=== PATIENT | female | born 1940 | race African-American/Black ===

== ENCOUNTER 2023-10-22 06:07 | Day surgery (SDC) | payer MEDICARE, BC, SELFPAY ==
[2023-10-22] VITALS (12 sets, daily range): BP systolic 81–167; BP diastolic 56–69; BMI 28.4
[2023-10-22] MEDS: NSS 211 ML IV (07:11)
[2023-10-22 07:13] LABS: Glucose - Point of Care 96 mg/dl (70-99)
[2023-10-22] MEDS: NSS 1000 IV (08:33)
--- NOTE | 2023-10-22 08:36 | ITS.CL.CATH ---
Rn Child - Catheterization
Cardiac Catheterization
Procedure Report:
CARDIAC CATHETERIZATION REPORT
Date of Procedure: 10/22/2023
Referring: Harmeet Ontiveros MD
Indication: Chest pain with moderate to severe aortic stenosis
HEMODYNAMIC DATA
AO: 127/60
LV: 145/18
PCWP: 22
PA: 53/26
RV: 53/15
RA: 14
Oximetry: Ao 91%, PA 65%, cardiac 4.0, cardiac index 2.4
There is moderate to severe aortic stenosis with mean gradient 24 mmHg and calculated DHRUV 0.9 cm�
LEFT VENTRICULOGRAPHY: Normal left ventricular wall motion with EF 64%
CORONARY ANGIOGRAPHY
Dominance: Right
Left Main: Normal
LAD: Calcified 30% mid LAD stenosis otherwise normal
Circumflex: Normal
RCA: Normal
Closure Device: None-the procedure was performed via the right radial artery and right femoral vein.
Radiation (mGy): 121
DAP (cm2.Gy): 8.7
Fluoroscopy time: 4.1 minutes
CONCLUSIONS
1: Elevated filling pressures with moderate pulmonary hypertension
2: Moderate to severe aortic stenosis with mean gradient 24 mmHg and calculated DHRUV 0.9 cm�
3. Normal left ventricular function with EF 64%
4. Mild single-vessel CAD as described
5. Given the elevated filling pressures will recommend trial of furosemide 20 mg/KCl 10 mEq on Mondays and Fridays
6. Would continue to monitor with serial clinical and echocardiogram follow-up for progression of AAS
7. Given age associated bleeding risk will transition to aspirin monotherapy as patient currently on DAPT
Copy to: Harmeet Ontiveros MD, Sweta Henderson,
Gilles Orosco MD, [facility], [facility]
[2023-10-22 08:38] LABS: Glucose - Point of Care 97 mg/dl (70-99)
== END 2023-10-22 11:45 | disposition home or self-care (01) ==
LOC: CATH 06:07
PROVIDERS: ATTENDING PHYSICIAN Internal Medicine Cardiovascular Disease; FAMILY PHYSICIAN Family Medicine; OTHER PHYSICIAN Internal Medicine
DX: I25.10 Atherosclerotic heart disease of native coronary artery without angina pectoris (principal); R07.9 Chest pain, unspecified; I35.0 Nonrheumatic aortic (valve) stenosis; I13.10 Hypertensive heart and chronic kidney disease without heart failure, with stage 1 through stage 4 chronic kidney disease, or unspecified chronic kidney disease; E11.22 Type 2 diabetes mellitus with diabetic chronic kidney disease; N18.30 Chronic kidney disease, stage 3 unspecified; I27.20 Pulmonary hypertension, unspecified; E78.00 Pure hypercholesterolemia, unspecified; Z79.02 Long term (current) use of antithrombotics/antiplatelets; Z79.84 Long term (current) use of oral hypoglycemic drugs; Z79.82 Long term (current) use of aspirin
CPT/HCPCS: C1894; 82962; 93005; 93460; Q9967

== ENCOUNTER 2024-02-20 05:51 | Inpatient (IN) | payer MEDICARE, BC, SELFPAY ==
[2024-02-17 10:40] VITALS: BMI 28.8
[2024-02-17 11:30] LABS: % Basophils 0.9 % (0-2); % Eosinophils 3.3 % (0-6); % Immature Granulocytes 0.1 % (0-0.5); % Lymphocytes 44.1 % (20.5-51.1); % Monocytes 5.6 % (1.7-9.3); Absolute Basophils 0.1 10^3/uL (0-0.2); Absolute Eosinophils 0.2 10^3/uL (0-0.7); Absolute Monocytes 0.4 10^3/uL (0.1-0.6); Absolute Neutrophils 3.1 10^3/uL (1.4-6.5); Hemoglobin 11.1 g/dL (12.0-16.0); Mean Corp Hgb Conc. 32.6 g/dL (33.0-37.0); Mean Corpuscular Volume 85.6 fL (81.0-99.0); Mean Platelet Volume 9.7 fL (7.4-10.4); Nucleated Red Blood Cells % 0 %; Platelet Count 249 10^3/uL (130-400); Red Blood Cell Count 3.97 10^6/uL (4.20-5.40); Red Cell Dist. Width 15.8 % (11.5-14.5); White Blood Cell Count 6.8 10^3/uL (4.8-10.8)
[2024-02-17 11:43] LABS: INR 0.95; PT 12.4 Sec (11.4-14.6)
[2024-02-17 11:44] LABS: APTT 29.3 Sec (23.4-35.0)
[2024-02-17 11:50] LABS: Blood Urea Nitrogen 20 mg/dl (7-17); Calcium 9.9 mg/dl (8.4-10.2); Carbon Dioxide 30 mmol/L (22-30); Chloride 105 mmol/L (98-107); Estimated Creatinine Clearance 32 ml/min; Glucose 91 mg/dl (70-99); Potassium 4.7 mmol/L (3.5-5.1); Sodium 146 mmol/L (135-145); eGFR 44.91
[2024-02-20] VITALS (21 sets, daily range): BP systolic 106–144; BP diastolic 53–86; BMI 29.2
[2024-02-20] MEDS: PERIDEX 0.12% ORAL RINSE 15 ML PO (06:44)
[2024-02-20] MEDS: BACTROBAN NASAL 1 GRAM NASAL (06:44)
[2024-02-20] MEDS: NSS 500 IV (06:45)
--- NOTE | 2024-02-20 07:09 | W.SUR.PREOP ---
Pre-Operative Surgical Note
-
I have examined this patient prior to the performance of the scheduled procedure.
The patient's condition is unchanged from the time of the current History and
Physical and the patient is able to undergo the scheduled procedure.
[2024-02-20 07:10] LABS: Glucose - Point of Care 93 mg/dl (70-99)
--- NOTE | 2024-02-20 09:22 | OR.RPT ---
Operative Report
Operative Report
PROCEDURE DATE: 02/20/2024
Preoperative diagnosis: Critical left carotid artery stenosis, asymptomatic.
Postoperative diagnosis: Same
Procedure: Left carotid endarterectomy with bovine pericardial patch angioplasty and intraoperative EEG/SSEP monitoring.
Surgeon: Dakota
Roll Setter: LETTY Hoover, required for all aspects of procedure including assistance with traction/countertraction, following a suture line, assistance with closure.
Complications: None
Anesthesia: General
Indications for procedure:
History of remote right carotid endarterectomy. Now with severe left carotid artery stenosis on imaging. Risk/benefits/alternatives of revascularization were all fully discussed. Patient understood all wish to proceed.
Description of procedure:
Patient was identified brought to the operating room placed on the table in supine position. After the adequate administration of anesthesia and perioperative antibiotics she was prepped and draped in the standard surgical fashion. A standard
preoperative timeout was undertaken and everybody was in agreement the plan. A standard longitudinal incision was made in the left neck that was carried through the skin subcutaneous tissue. Using the electrocautery dissection was carried through
the platysma muscle layer and then alongside the anterior medial border of the sternocleidomastoid muscle. Note there was an external jugular vein that was clipped on either side and then divided. Then using a combination of sharp dissection with
the Metzenbaum scissors and electrocautery I dissected along the anterior medial border of the internal jugular vein. The common facial vein branch was ligated between silk ties and then divided. I then deepened my retraction. The common carotid
artery was identified and carefully dissected away from the surrounding structures take great care to avoid any injury to the structures. A vessel loop was passed around it which was double looped, but not yet tightened. Note the vagus nerve was
visualized and protected from harm's way. I then continued my dissection up the common carotid artery to the bulb staying only on the anterior surface of the carotid artery. Then I carried the dissection up to the internal carotid artery and then
to the distal internal carotid artery. Note that the internal carotid artery actually coursed posterior medially to the carotid bulb (this was identified on preoperative imaging). The external carotid artery was more superficial and lateral. I
identified the superior thyroid artery branch as well confirming the anatomy of the external carotid artery. Therefore I then continued to dissect the internal carotid artery from the posterior lateral aspect. I identified where it was soft and
carefully circumferentially dissected the internal carotid artery with minimal mobilization and passed a vessel loop around it. Note the hypoglossal nerve was visualized and preserved from harm's way. The patient was given an appropriate dose of
heparin 7000 units. Next I dissected the anterior surface of the external carotid artery and superior thyroid branches that I had identified. These were then carefully circumferentially dissected with minimal mobilization and vessel loops passed
around these which were double looped but not yet tightened. After 3 minutes of heparin circulation time and confirmation of optimization of the blood pressure with my anesthesiology colleagues, I clamped the distal internal carotid artery where it
was soft. There was no immediate EEG or SSEP changes. After 1 minute of test clamp time there was no changes noted. Therefore at this point, the vessel loops on the external carotid artery and superior thyroid branches were tightened and the
common carotid artery was clamped where it was soft proximally. An arteriotomy was made on the common carotid artery with an 11 blade and extended using a Govea scissor. I extended the arteriotomy onto the mid to distal internal carotid artery.
As noted on CT scan there is a hard calcified bulky plaque at the bifurcation extending just into the origin of the internal carotid artery. Resulted in severe stenosis.. A [place] was then used to endarterectomized the plaque. An endarterectomy
plane was created, and the plaque was then endarterectomized. Distally I feathered the plaque out to a nice clean endpoint in the distal internal carotid artery. Next I endarterectomized the intima back to normal intima in the common carotid
artery, and the intima was feathered out nicely there. I then grasped the plaque and everted plaque out of the origin of the external carotid artery. The plaque was then sent off for specimen. The origin of the external carotid artery was
carefully visualized and any fine debris were removed with fine forceps. Proximal and distal endpoints were then carefully inspected. Any fine debris was removed with fine forceps, and the intima was noted to be nicely adherent proximally and
distally. Next any fine debris were removed throughout the endarterectomy bed with fine forceps. Three interrupted 7-0 Prolene tacking sutures were placed to tack the distal endpoint. I then flushed heparinized saline. I was very satisfied.
Then, I used a bovine pericardial patch to sew a patch angioplasty with a running 6-0 Prolene suture. Prior to completing and tying down my suture line, I backbled sequentially each branch and reclamped each branch prior to unclamping the next
branch. I then irrigated with heparinized saline. Then I completed and tied down my suture line. We then restored flow in the common carotid and external carotid arteries. Finally, we released flow in the internal carotid artery. There was
excellent pulsatile flow in all 3 vessels. There was an excellent Doppler signal in the internal carotid artery distal to the patch with a good normal low resistance Doppler signal. There was a good Doppler signal in the external carotid artery as
well. A couple 6-0 Prolene [id number] sutures were placed along any bleeding points along the suture line. Protamine was given to reverse the heparin. Hemostasis was completely achieved. We then irrigated and confirmed full hemostasis. We
then closed in layers with 2-0 Vicryl layer to reapproximate the sternocleidomastoid muscle, followed by 3-0 Vicryl platysma muscle running layer, followed by 4-0 Monocryl subcuticular stitch. Dermabond was applied. The patient tolerated procedure
well. She awoke moving all extremities to command with tongue in the midline.
--- NOTE | 2024-02-20 09:29 | W.SUR.POST ---
Surgical Immediate Post Op
Note
Pre Op Diagnosis: Carotid stenosis
Post Op Diagnosis: Same
Procedure Performed: Left carotid endarterectomy with bovine pericardial patch angioplasty and EEG monitoring
Primary Surgeon: Dakota
Assist: Sneha BAI
Anesthesia: General
Estimated Blood Loss: 20 cc
Fluids: See anesthesia flowsheet
Drains/Shunts: None
Specimens/Cultures: Carotid plaque
Doppler/Duplex/Angio (Y/N): Y
Complications: None
Operative Findings: Woke from anesthesia moving all extremities
[2024-02-20] MEDS: ZOFRAN 4 MG IV (09:59)
[2024-02-20 10:10] LABS: Glucose - Point of Care 147 mg/dl (70-99)
[2024-02-20 10:20] LABS: Hematocrit 31.7 % (37.0-47.0); Hemoglobin 10.7 g/dL (12.0-16.0); Mean Corp Hgb Conc. 33.8 g/dL (33.0-37.0); Mean Corpuscular Hgb 29.4 pg (27.0-31.0); Mean Corpuscular Volume 87.1 fL (81.0-99.0); Mean Platelet Volume 9.8 fL (7.4-10.4); Platelet Count 207 10^3/uL (130-400); Red Blood Cell Count 3.64 10^6/uL (4.20-5.40); Red Cell Dist. Width 15.7 % (11.5-14.5); White Blood Cell Count 7.7 10^3/uL (4.8-10.8)
[2024-02-20 10:30] LABS: INR 1.07
[2024-02-20 10:31] LABS: APTT 32.3 Sec (23.4-35.0)
[2024-02-20] MEDS: NSS 1000 IV ×2 (10:33→20:24)
[2024-02-20 10:39] LABS: Blood Urea Nitrogen 15 mg/dl (7-17); Carbon Dioxide 19 mmol/L (22-30); Chloride 111 mmol/L (98-107); Estimated Creatinine Clearance 47 ml/min; Glucose 154 mg/dl (70-99); Potassium 4.2 mmol/L (3.5-5.1); Sodium 142 mmol/L (135-145); eGFR > 60.00
[2024-02-20 11:45] LABS: Glucose - Point of Care 155 mg/dl (70-99)
[2024-02-20] MEDS: MORPHINE SULFATE 2 MG IV (12:03)
--- NOTE | 2024-02-20 12:30 | PTCARENOTE ---
Rec'd pt at 1135 via bed. Rec'd pt groggy but easily arousable alert and oriented. Speech is clear. Smile is even. Tongue protrudes midline. Denies dizziness or headache. MAE. HERRERA at 2mm. L neck incision is approximated with surgical adhesive
intact- no swelling or drainage. Ice pack to neck 20 min q2hrs. Did c/o 10/10 L neck incisional soreness. Medicated with Morphine 2 mg IV at 1205. Respirs are unlabored. Rec'd pt on 2l nc with sats of 99%. BS are decreased at the bases with few
fine base crackles. Monitor SR with isolated PVC's. R radial A line is intact-site wnl. No swelling or drainage. Good CMS checks to distal extrem. Overall when zeroed within 15-20 mm/hg of cuff BP. Abd is soft with + BS. Denies nausea. Purewick
placed as pt is concerned about being incontinent with coughing or moving. States she voids frequently at home. IV NSS hung via R forearm IV site at 80 ml/hr. Capped int intact R hand and L posterior forearm. CHG bath given. Repositioned. Plan of
care reviewed with pt and pts who is now at the bedside. Call cloud in reach.
--- NOTE | 2024-02-20 13:15 | PTCARENOTE ---
Sat pt up in bed to eat some jello and pt vomited some clear secretions. [place] nauseated in the moment but then it subsided. then relayed that pt is sensitive to Morphine and has gotten sick on it before- to which pt responded ' Oh thats
right I did get sick on it before'. Will update vascular surgery. No other changes. VS as documented. L neck incision is unchanged.
--- NOTE | 2024-02-20 13:45 | CON.INTV ---
Consultation
Consultation Request
Date/Time Consultation Requested: 02/20/2024
Date/Time Consultation Performed: 02/20/2024
Requesting Provider: Dr. Duncan
Performing Provider: Dr. Mario Thorpe
Reason for Consultation: Status post left carotic endarterectomy-postoperative ICU care
Medical History
-
History of Present Illness:
83-year-old woman who was diagnosed with greater than 70% left carotid artery stenosis. She was deemed a candidate for revascularization. Carotic endarterectomy underwent on 02/20/2024 without complications.
Currently in the critical care unit. Hemodynamically stable. Neurologically denies any complaints but
Her pain is controlled.
Denies any stridor.
Past Medical History
Past Medical History: Other (See assessment and plan)
Social History
Tobacco: Non-smoker
Alcohol: None
Drug: None
Family History
Family History: Reviewed & Not Pertinent
Allergies / Home Medications
Allergies
Allergy/AdvReac Type Severity Reaction Status Date / Time
Penicillins Allergy Unknown Unknown Verified 02/12/24 10:24
Home Medications
�Medication �Instructions �Recorded �Confirmed �Last Taken �Type
allopurinol 100 mg tablet 100 mg PO QPM Gout 10/22/23 02/20/24 02/19/24 18:00 History
amlodipine 2.5 mg tablet 2.5 mg PO BID Blood Pressure 10/22/23 02/20/24 02/19/24 18:00 History
aspirin 81 mg tablet,delayed 81 mg PO DAILY Blood Clot 10/22/23 02/20/24 02/20/24 06:00 History
release Prevention/Tx
carvedilol 12.5 mg tablet 12.5 mg PO BID Blood Pressure 10/22/23 02/20/24 02/19/24 18:00 History
cholecalciferol (vitamin D3) 25 25 mcg PO DAILY Supplement 10/22/23 02/20/24 02/19/24 06:00 History
mcg (1,000 unit) chewable tablet
(Vitamin D3)
ezetimibe 10 mg tablet 10 mg PO QPM High Cholesterol 10/22/23 02/20/24 02/19/24 18:00 History
metformin 1,000 mg tablet 1,000 mg PO QPM Diabetes 10/22/23 02/20/24 02/19/24 18:00 History
metformin 1,000 mg tablet 500 mg PO DAILY Diabetes 10/22/23 02/20/24 02/19/24 07:00 History
omeprazole 40 mg capsule,delayed 40 mg PO BID Gastrointestinal Issue 10/22/23 02/20/24 02/19/24 20:00 History
release
rosuvastatin 20 mg tablet 20 mg PO QPM High Cholesterol 10/22/23 02/20/24 02/19/24 18:00 History
clopidogrel 75 mg tablet (Plavix) 75 mg PO DAILY Blood Clot 02/12/24 02/20/24 02/20/24 05:30 History
Prevention/Tx
Review of Systems
-
History Source: Patient
All other systems: Negative unless noted
Vitals / Labs / Diagnostic Testing
Vital Signs
Temp Pulse Resp BP Pulse Ox
98.5 F 69 14 118/86 97
02/20/24 11:15 02/20/24 13:20 02/20/24 13:20 02/20/24 13:20 02/20/24 13:20
Lab Data
02/20/24 10:01
02/20/24 10:01
Laboratory Results
02/20/24
10:01
PT 14.0
INR 1.07
APTT 32.3
Microbiology
02/17/24 10:50 Nose MRSA Screen - Final
No Methicillin Resistant Staphylococcus aureus isolated.
Diagnostic Testing:
Physical Exam
-
HEENT: Normocephalic and Other (Left cervical incision is intact. No stridor on exam. No hematoma)
Cardiovascular: S1/S2
Respiratory: Clear
GI: Soft and Non Distended
Neurology: Awake, Alert, Oriented and No Motor Deficits
Skin: Warm
General: Comfortable
Assessment
-
Status post left carotid endarterectomy. 02/20/[address] Duncan
Conditions present on admission:
Gout
Coronary artery disease
Aortic stenosis
Chronic PVCs
Hypertension
Hypercholesterolemia
Type 2 diabetes
Chronic kidney disease
Assessment and plan:
Postoperative day 0:
Postoperative surgical intensive care unit monitoring
Supplemental oxygen as needed
Incentive spirometry
Aspiration precautions
Nebulizers if needed-currently not bronchospastic
Chest x-ray 02/20/2024: Reviewed this film showed clear lungs. Right lower lobe likely subsegmental atelectasis.
On prior x-ray 02/17/2024: There is possibly a left lower lobe lung nodule.
This could be analyzed further in the outpatient setting with a CAT scan.
Pain control with narcotics. Monitor respiratory status closely
Neuro and vascular checks per protocol
Antiplatelet
Lowering cholesterol medication will continue.
Vascular surgery following-correspondence and operative notes reviewed
Monitor blood pressure
Allow for mild permissive hypertension
Cardene drip if needed
Restart antihypertensive.
Anemia noted. Normocytic
Follow hemoglobin
Follow blood sugars
Insulin supplementation as needed
DVT prophylaxis-heparin subcu.
Early nutrition
Early mobilization
--- NOTE | 2024-02-20 14:00 | PTCARENOTE ---
Dozing- no further nausea. Placed pt on RA at 1300 and sats had been 95-96% but with dozing sats dipping to 88-89%- placed back on 2l nc with sats of 97%. Family remains at the bedside. No other changes
[2024-02-20] MEDS: TYLENOL 650 MG PO (14:48)
--- NOTE | 2024-02-20 14:50 | PTCARENOTE ---
Remains resting. Medicated with Tylenol 650 mg po for c/o 8/10 L neck soreness. No changes in assessment
--- NOTE | 2024-02-20 17:00 | PTCARENOTE ---
Overall no changes in assessment. Admits to alberto Hay neck soreness post earlier Tylenol. ICE to L neck 20 min q2hrs. L neck incision remains approximated sl ecchymosis but no swelling or drainage. Dr. Duncan in to see pt. No further nausea. O2 -2l with
sats of 99-100%. Voiding small amts of yellow urine via purewick. Repositioned. Call cloud in reach.
[2024-02-20] MEDS: HEPARIN 5000 UNITS SC ×2 (17:14→23:51)
[2024-02-20 17:20] LABS: Glucose - Point of Care 127 mg/dl (70-99)
[2024-02-20] MEDS: CRESTOR 20 MG PO (18:04)
[2024-02-20] MEDS: ZYLOPRIM 100 MG PO (18:05)
[2024-02-20] MEDS: ZETIA 10 MG PO (18:05)
--- NOTE | 2024-02-20 18:11 | PTCARENOTE ---
Working on dinner. No nausea currently. No changes in assessment. Call cloud in reach
[2024-02-20] MEDS: COREG 12.5 MG PO (20:24)
[2024-02-20] MEDS: PROTONIX 40 MG PO (20:25)
[2024-02-20] MEDS: NORVASC 2.5 MG PO (20:25)
--- NOTE | 2024-02-20 20:44 | PTCARENOTE ---
pt received from previous rn- aox4, able to make needs known, pupils equal and reactive, facial symmetry, no tongue deviation noted. pt able to turn and reposition self- verbalized understanding to bedrest orders. nsr with 1st degree block on
monitor, right radial patrick zeroeed and functioning. pt verbalized understanding to poc and education. remains on 1LNC. denies pain at this time. left neck incision potato seed cutter c/d/i. all safety precautions in place, call cloud within reach. bed alarm on.
[2024-02-20 23:30] LABS: Glucose - Point of Care 122 mg/dl (70-99)
--- NOTE | 2024-02-20 23:54 | PTCARENOTE ---
assessment unchanged. denies pain at this time. pt resting comfortably.
[2024-02-21] VITALS (13 sets, daily range): BP systolic 103–144; BP diastolic 47–103; BMI 29.2
--- NOTE | 2024-02-21 05:00 | PTCARENOTE ---
assessment unchanged. am care provided. labs sent
[2024-02-21 05:41] LABS: APTT 32.4 Sec (23.4-35.0); INR 1.05; PT 13.8 Sec (11.4-14.6)
[2024-02-21 05:44] LABS: Hematocrit 27.2 % (37.0-47.0); Hemoglobin 9.3 g/dL (12.0-16.0); Mean Corp Hgb Conc. 34.2 g/dL (33.0-37.0); Mean Corpuscular Hgb 28.4 pg (27.0-31.0); Mean Corpuscular Volume 83.2 fL (81.0-99.0); Mean Platelet Volume 9.7 fL (7.4-10.4); Platelet Count 193 10^3/uL (130-400); Red Blood Cell Count 3.27 10^6/uL (4.20-5.40); Red Cell Dist. Width 15.6 % (11.5-14.5); White Blood Cell Count 8.3 10^3/uL (4.8-10.8)
[2024-02-21 05:50] LABS: Blood Urea Nitrogen 17 mg/dl (7-17); Calcium 9.1 mg/dl (8.4-10.2); Carbon Dioxide 21 mmol/L (22-30); Chloride 112 mmol/L (98-107); Estimated Creatinine Clearance 48 ml/min; Glucose 103 mg/dl (70-99); Potassium 4.2 mmol/L (3.5-5.1); Sodium 143 mmol/L (135-145); eGFR > 60.00
[2024-02-21 07:47] LABS: Glucose - Point of Care 89 mg/dl (70-99)
--- NOTE | 2024-02-21 08:30 | PTCARENOTE ---
Received pt. @ change of shift. Ox3,denies pain . Neuro checks maintained per orders- see flow sheet. SR w 1st degree AVB. SpO2 100% on 1LNC. Auscultated dim breath sounds @ b/l base w crackles. +BS, abd soft/round. Tolerating breakfast. Inc
bladder, purewick in place draining yellow urine. L neck incision approximated w surgical glue, MAGGIE. NSS infusing @ 80mL/hr via #18 R FA. R rad A-line transduced, monitored, and calibrated; all ports patent and secured. Instructed on how to report
care concerns and call cloud placed w in reach.
[2024-02-21] MEDS: COREG 12.5 MG PO (08:50)
[2024-02-21] MEDS: GLUCOPHAGE 500 MG PO (08:50)
[2024-02-21] MEDS: PLAVIX 75 MG PO (08:50)
[2024-02-21] MEDS: VITAMIN D3 (cholecalciferol) 25 MCG PO (08:50)
[2024-02-21] MEDS: ASPIR LOW (ENTERIC COATED) 81 MG PO (08:50)
[2024-02-21] MEDS: NSS 1000 IV (08:50)
[2024-02-21] MEDS: PROTONIX 40 MG PO (08:50)
[2024-02-21] MEDS: NORVASC 2.5 MG PO (08:50)
[2024-02-21] MEDS: HEPARIN 5000 UNITS SC (08:51)
--- NOTE | 2024-02-21 08:59 | W.PN.INTV ---
Today's Communication / Plan
Recommendations
Discontinue arterial line, encourage patient to get out of bed and ambulate, advance diet, discontinue IV fluids, likely discharge later today.
Assessment
-
Status post left carotid endarterectomy. 02/20/[address] Duncan
Conditions present on admission:
Gout
Coronary artery disease
Aortic stenosis
Chronic PVCs
Hypertension
Hypercholesterolemia
Type 2 diabetes
Chronic kidney disease
Assessment and plan:
Postoperative day 1:
Patient was cleared by vascular surgery if she is able to get out of bed and ambulate and resume her diet.
Surgical wound appears closed and there is no drainage or bleeding noted
Discontinue arterial line
Discontinue IV fluids
Patient advanced to normal diet
Likely will be discharged home later today if current trajectory continues
Postoperative surgical intensive care unit monitoring
Supplemental oxygen as needed
Incentive spirometry
Aspiration precautions
Nebulizers if needed-currently not bronchospastic
Chest x-ray 02/20/2024: Reviewed this film showed clear lungs. Right lower lobe likely subsegmental atelectasis.
On prior x-ray 02/17/2024: There is possibly a left lower lobe lung nodule.
This could be analyzed further in the outpatient setting with a CAT scan.
Pain control with narcotics. Monitor respiratory status closely
Neuro and vascular checks per protocol
Antiplatelet
Lowering cholesterol medication will continue.
Vascular surgery following-correspondence and operative notes reviewed
Monitor blood pressure
Allow for mild permissive hypertension
Cardene drip if needed
Restart antihypertensive.
Anemia noted. Normocytic
Follow hemoglobin
Follow blood sugars
Insulin supplementation as needed
DVT prophylaxis-heparin subcu.
1800-calorie diabetic diet
Early mobilization
Subjective Dataa
Subjective Data
Date of Service:
Date of Service: February 21, 2024
Met with patient at the bedside. Patient is calm and cooperative in discussion and shared that she feels that she is doing much better. She was eating her breakfast and made humorous remarks about how she was thinking with her stomach while she
was ordering breakfast and accidentally ordered too much food.
Review of Systems
General: Satisfactory Appetite
Objective Data
Data Reviewed
Vital Signs / I&O / Oxygen:
Vital Signs
Temp Pulse Resp BP Pulse Ox
98.4 F 70 25 153/50 99
02/21/24 07:30 02/21/24 08:50 02/21/24 07:30 02/21/24 08:50 02/21/24 07:30
Intake and Output
02/20/24 02/21/24 02/22/24
06:59 06:59 06:59
Intake Total 2070 / 2150 80 / 80
Output Total 550 / 550
Balance 1520 / 1600 80 / 80
SaO2 99
Nasal Cannula flow liters per 1
minute
Physical Exam
General: Comfortable and Good Appetite
HEENT: Normocephalic and Anicteric
Cardiovascular: S1-S2 and Regular Rhythm
Respiratory: Clear and Non-Labored Respirations
GI: Soft, Non Distended, Non Tender and Normal Bowel Sounds
Neurology: Awake, Alert and Oriented
Skin: Warm and Dry
Labs/Micro/Reports
Lab Data
02/21/24 05:02
02/21/24 05:02
Laboratory Results
02/20/24 02/21/24
10:01 05:02
PT 14.0 13.8
INR 1.07 1.05
APTT 32.3 32.4
Microbiology
02/17/24 10:50 Nose MRSA Screen - Final
No Methicillin Resistant Staphylococcus aureus isolated.
--- NOTE | 2024-02-21 09:17 | W.PN.VS ---
Today's Communication / Plan
-
Seen and assessed with Dr. Farmer
Assessment/Plan
-
POD 1 left CEA
Plan:
-DC A-line
-Out of bed/ambulate
-Increase diet
-DC IV fluids
-Can likely discharge home later today
Subjective Data
-
Date of Service: February 21, 2024
Patient seen at bedside this a.m. with Dr. Farmer. No events overnight patient denies complaints at this time.
Objective Data
-
Vital Signs
Temp Pulse Resp BP Pulse Ox
98.4 F 70 25 153/50 99
02/21/24 07:30 02/21/24 08:50 02/21/24 07:30 02/21/24 08:50 02/21/24 07:30
Intake and Output
02/20/24 02/21/24 02/22/24
06:59 06:59 06:59
Intake Total 2070 / 2150 240 / 240
Output Total 550 / 550
Balance 1520 / 1600 240 / 240
Intake:
Oral fluids 350 / 350
IV fluids (Total) 1720 / 1800 240 / 240
Normosol 200 / 200
Nss 1,000 ml @ 80 mls/hr IV . 1520 / 1600 240 / 240
[id number] [facility] Rx#:[id number]
Output:
Urine, Farmer 50 / 50
Urine, Voided 500 / 500
Other:
Number of approximated SMALL 1
amounts of urine
Lab Results
02/21/24 05:02
02/21/24 05:02
Calcium 9.1 mg/dl (8.4-10.2) 02/21/24 05:02
Physical Exam
-
AAOx3
Neck site clean, dry, intact, soft, no drainage noted
No tachycardia
No tachypnea on 2 L
Abdomen soft
Moves all extremities
Tongue midline
[2024-02-21] MEDS: TYLENOL 650 MG PO (11:34)
--- NOTE | 2024-02-21 11:49 | PN.CDI ---
CDI
- -
CDI:
Physician Documentation Request
Admit Date: 02/20/24 05:51
Dear Vascular,
Please review the following and provide your response in the progress notes.
Clinical Indicators:
- 8/6 H&P indicates CKD without specificity
- The following labs:
Laboratory Tests
02/17/24 02/20/24 02/21/24
11:03 10:01 05:02
Creatinine 1.2 H 0.8 0.8
eGFR 44.91 > 60.00 > 60.00
Please clarify which of the following accurately represents the patient's renal status:
GOLDEN on CKD2
CKD3
CKD2
Other
Criteria for GOLDEN*
1 Increase in serum creatinine by > or = to 0.3 mg/dL (> or = to 26.5 micromol/L) within 48 hours, OR
2 Increase in serum creatinine to > or = to 1.5 times baseline, which is known or presumed to have occurred within 7 days, OR
3 Urine volume < 0.5 nL/kg/hour for six hours
Stages of Chronic Kidney Disease*
Level Description GFR
G1 Normal or High >90
G2 Mildly decreased 60-89
G3a Mildly to moderately decreased 45-59
G3b Moderately to severely decreased 30-44
G4 Severely decreased 15-29
G5 Kidney failure <15
Use of terms such as suspected, likely, concern for, or probable (associated with a specific diagnosis that is being evaluated, monitored, or treated as if it exists) are acceptable and can be coded in the inpatient setting, when documented at the
time of discharge.
Thank you,
Shine Tidwell RN
CDI Specialist
Please use your independent medical judgment in providing your response.
*Source: Kidney Disease: Improving Global Outcomes (KDIGO) 2012
--- NOTE | 2024-02-21 12:14 | PTCARENOTE ---
Vascular team to bedside this AM, further orders received. IVF's d/c'd. R rad A-line removed, pressure held until bleeding ceased and clean dressing applied. Assisted w AM hygiene care. Assisted x1 OOB to chair @ 1100. Tolerating meals and chair
position. C/O mod incisional pain, medicated w PRN Tylenol- see MAR and ice pack applied intermittently. Call cloud remains w in reach.
[2024-02-21 12:31] LABS: Glucose - Point of Care 92 mg/dl (70-99)
--- NOTE | 2024-02-21 12:51 | PTCARENOTE ---
Pt. walked halls w RW, no s/s of distress. VSS. Assisted back to chair. Remains tolerating chair position. Family @ bedside. Call ai pinto in reach.
--- NOTE | 2024-02-21 13:08 | W.DS.TRANS ---
DC Summary - Community Sports Coordinator
-
Discharge Instructions:
Discharge Diagnosis/Procedures Left carotid endarterectomy
Diet No restrictions
Activity No strenuous activity
Driving Restrictions Not until seen by your Dr
Bathing Restrictions OK to Shower
Instructions:
Stand-Alone Forms: DC Instr - Vascular OR
Changes to Home Medications: No
Discharge Medications:
DC Medications w/original date entered in [employer]
allopurinol 100 mg tablet 100 mg PO QPM Gout 10/22/23
amlodipine 2.5 mg tablet 2.5 mg PO BID Blood Pressure 10/22/23
aspirin 81 mg tablet,delayed release 81 mg PO DAILY Blood Clot Prevention/Tx 10/22/23
carvedilol 12.5 mg tablet 12.5 mg PO BID Blood Pressure 10/22/23
cholecalciferol (vitamin D3) 25 mcg (1,000 unit) chewable tablet (Vitamin D3) 25 mcg PO DAILY Supplement 10/22/23
ezetimibe 10 mg tablet 10 mg PO QPM High Cholesterol 10/22/23
metformin 1,000 mg tablet 1,000 mg PO QPM Diabetes 10/22/23
metformin 1,000 mg tablet 500 mg PO DAILY Diabetes 10/22/23
omeprazole 40 mg capsule,delayed release 40 mg PO BID Gastrointestinal Issue 10/22/23
rosuvastatin 20 mg tablet 20 mg PO QPM High Cholesterol 10/22/23
clopidogrel 75 mg tablet (Plavix) 75 mg PO DAILY Blood Clot Prevention/Tx 02/12/24
Home Medication Changes
Pending Results: No
--- NOTE | 2024-02-21 14:02 | PTCARENOTE ---
Discharge instructions completed w pt. and family members @ bedside- see d/c documentation. hospital monitor and PIVs removed. Pt. discharged to home via wheelchair w family. No further needs from this RN.
--- NOTE | 2024-02-21 15:06 | CM ---
Addendum entered by Sanam Rivas 02/21/24 15:16:
referral sent to [facility] vna for vn and eval for home pt.
Original Note:
met with patient at bedside.patient [place] with [place]ste,her bed and bath is on the second level,she amb with a walker.she is I with her adl.she hs had vn through [facility] .she has no hx of ip rehabpcp is
pcp: dr patel and she uses [facility] in [facility].
dme:3 walkers,wheelchair,shower chair
patient is pod#1 left cea,dc ivf,oob/ambulate,stable for dc home today.family to transport home.patient has declined a vn.
--- NOTE | 2024-02-21 16:15 | W.PN.UPDATE ---
Update Note
Progress Note Update
CDI:
Physician Documentation Request
Admit Date: 02/20/24 05:51
Dear Vascular,
Please review the following and provide your response in the progress notes.
Clinical Indicators:
- 8/6 H&P indicates CKD without specificity
- The following labs:
Laboratory Tests
02/17/24 02/20/24 02/21/24
11:03 10:01 05:02
Creatinine 1.2 H 0.8 0.8
eGFR 44.91 > 60.00 > 60.00
Please clarify which of the following accurately represents the patient's renal status:
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
--- NOTE | 2024-02-27 09:34 | W.DCSUMMARY ---
Discharge Summary
Discharge Data
Date of Admission: 02/20/24
Date of Discharge: 02/21/24
-
Pending Results: No
Hospital Course
Attending: [place]
Consultants: Pulmonary medicine
Allergies: Penicillins
Procedure with date: 02/20/24:Left carotid endarterectomy with bovine pericardial patch angioplasty and intraoperative EEG/SSEP monitoring
History of present illness: The patient is an 83 -year-old female with multiple medical conditions including: carotid stenosis, Gout, Coronary artery disease, Aortic stenosis, Chronic PVCs, Hypertension, Hypercholesterolemia, Type 2 diabetes,
Chronic kidney disease. Patient presented on 02/20/24 for scheduled procedure with Dr. Duncan. Patient presented at baseline health with no reports of recent illness or trauma.
Hospital Course: Briefly, the patient underwent scheduled CEA without complications, and recovered in PACU. Following recovery phase one and two patient was transferred to intensive care unit per protocol for continued hemodynamic monitoring.
Social Service Liaison consulted to aid in medical management from a critical care perspective. POD #1 (02/21/24) Patient neurologically intact, face symmetrical, and tolerating PO diet. Surgical neck site clean, dry, and intact with suture line well
approximated and soft. No evidence of hematoma. Arterial line and IV fluids discontinued. Patient able to ambulate without difficulty or incident. Patient stable for discharge to home.
Prescriptions and follow up appointment are included in the DC summary manager legal note. All instructions were given to the patient in both written and verbal form and the patient expressed understanding.
Discharge Plan
-
Patient Disposition: Home (Routine Discharge)
Discharge Diagnosis/Procedures: Left carotid endarterectomy
Condition: Good
Diet: No restrictions
Activity: No strenuous activity
Driving Restrictions: Not until seen by your Dr
Bathing Restrictions: OK to Shower
Activity Restrictions/Additional Instructions:
If you experience severe constant headache, weakness to an arm or leg, change in vision, trouble speaking or any stroke-like symptom, call 911 immediately
If you experience swelling, increased bruising, drainage from neck site, or fever, please call the office
Stand Alone Forms: DC Instr - Vascular OR
Referrals:
Sweta Henderson DO [Family Provider] -
Fiona Rubalcava CRNP [Specified Professional Personl] - 03/05/24 1:00 pm (Vascular surgery follow-up)
Prescriptions:
Continued
carvedilol 12.5 mg Tablet
12.5 mg PO BID
amlodipine 2.5 mg Tablet
2.5 mg PO BID
rosuvastatin 20 mg Tablet
20 mg PO QPM
allopurinol 100 mg Tablet
100 mg PO QPM
omeprazole 40 mg Capsule,Delayed Release(Dr/Ec)
40 mg PO BID
aspirin 81 mg Tablet,Delayed Release (Dr/Ec)
81 mg PO DAILY
metformin 1,000 mg Tablet
1,000 mg PO QPM
metformin 1,000 mg Tablet
500 mg PO DAILY
ezetimibe 10 mg Tablet
10 mg PO QPM
cholecalciferol (vitamin D3) [Vitamin D3] 25 mcg (1,000 unit) Tablet,Chewable
25 mcg PO DAILY
clopidogrel [Plavix] 75 mg Tablet
75 mg PO DAILY
Discharge Orders:
Discharge Patient (As Directed); Ordered 02/21/24
Ordered By: Amna Hoover
Discharge Date and Time
Discharge Date/Time: 02/21/24 14:08
Print Language: SPANISH
== END 2024-02-21 14:08 | disposition home or self-care (01) | DRG 39 ==
LOC: ICU 05:51
PROVIDERS: Nurse Practitioner Acute Care; ADMITTING PHYSICIAN Surgery Vascular Surgery; CONSULT PHYSICIAN Internal Medicine Critical Care Medicine; FAMILY PHYSICIAN Family Medicine
PROC: 03CJ0ZZ Extirpation of Matter from Left Common Carotid Artery, Open Approach (ICD-10-PCS; 2024-02-20)
PROC: 03UJ0KZ Supplement Left Common Carotid Artery with Nonautologous Tissue Substitute, Open Approach (ICD-10-PCS; 2024-02-20)
DX: I65.22 Occlusion and stenosis of left carotid artery (principal); I25.10 Atherosclerotic heart disease of native coronary artery without angina pectoris; I35.0 Nonrheumatic aortic (valve) stenosis; I49.3 Ventricular premature depolarization; E11.22 Type 2 diabetes mellitus with diabetic chronic kidney disease; I12.9 Hypertensive chronic kidney disease with stage 1 through stage 4 chronic kidney disease, or unspecified chronic kidney disease; N18.30 Chronic kidney disease, stage 3 unspecified; E78.00 Pure hypercholesterolemia, unspecified; D63.1 Anemia in chronic kidney disease; M10.9 Gout, unspecified; Z79.02 Long term (current) use of antithrombotics/antiplatelets; Z79.84 Long term (current) use of oral hypoglycemic drugs; Z79.82 Long term (current) use of aspirin
CPT/HCPCS: 88304; 88311; 35301; 36415; 71045; 71046; 80048; 82962; 85025; 85027; 85610; 85730; 86850; 86900; 86901; 87070; 93005; 95938; 95941; 95955

== ENCOUNTER → 2024-04-14 13:08 | Outpatient (REF) | payer MEDICARE, BC, SELFPAY | LOC: RAD 13:08 | PROVIDERS: ATTENDING PHYSICIAN Registered Nurse; FAMILY PHYSICIAN Surgery Vascular Surgery | DX: I65.22 Occlusion and stenosis of left carotid artery (principal) | CPT/HCPCS: 93880 ==

== ENCOUNTER → 2024-10-21 13:08 | Outpatient (REF) | payer MEDICARE, BC, SELFPAY | LOC: RAD 13:08 | PROVIDERS: ATTENDING PHYSICIAN Surgery Vascular Surgery; FAMILY PHYSICIAN Family Medicine | DX: I65.22 Occlusion and stenosis of left carotid artery (principal) | CPT/HCPCS: 93880 ==

== ENCOUNTER → 2025-05-19 14:34 | Outpatient (REF) | payer MEDICARE, BC, SELFPAY | LOC: RAD 14:34 | PROVIDERS: ATTENDING PHYSICIAN Registered Nurse; FAMILY PHYSICIAN Family Medicine | DX: I65.22 Occlusion and stenosis of left carotid artery (principal) | CPT/HCPCS: 93880 ==